=== PATIENT | male | born 1950 | race Caucasian/White ===

== ENCOUNTER 2017-07-11 13:36 | Emergency (ER) | payer MEDICARE, OTHER ==
[2017-07-11 13:53] VITALS: BP 141/90
--- NOTE | 2017-07-11 14:12 | ERNOTE ---
Psychological HPI - Date Date of Service: 07/11/17 - General Chief Complaint: Psychiatric Problem Source: Reports: patient, family - Immun/Allergies/Home Medications Allergies/Adverse Reactions: Allergies codeine [Codeine] Allergy (Unknown, Verified 10/09/15 07:30) Hives Home Medications: HOME MEDICATIONS Allopurinol 300 mg PO DAILY 11/01/12 [Last Taken Unknown] Budesonide/Formoterol Fumarate [Symbicort 160-4.5 Mcg Inhaler] 2 puff IH BID 05/08 [Last Taken Unknown] Ezetimibe [Zetia] 10 mg PO DAILY 11/01/12 [Last Taken Unknown] Glyburide/Metformin HCl [Glyburide-Metformin 5-500 mg] 1 each PO BID 11/01/12 [ Last Taken Unknown] Hydrochlorothiazide 50 mg PO DAILY 11/01/12 [Last Taken Unknown] Lisinopril 40 mg PO BID 11/01/12 [Last Taken Unknown] Metoprolol Tartrate 100 mg PO QID 11/01/12 [Last Taken Unknown] Potassium Chloride [Klor-Con 10] 10 meq PO DAILY 11/01/12 [Last Taken Unknown] Ranitidine HCl [Zantac] 150 mg PO BID 11/01/12 [Last Taken Unknown] Simvastatin 80 mg PO DAILY 11/01/12 [Last Taken Unknown] Tamsulosin HCl [Flomax] 0.4 mg PO DAILY 10/08/15 [Last Taken Unknown] buPROPion HCL [Wellbutrin SR, Zyban] 150 mg PO BID 10/08/15 [Last Taken Unknown] - History of Present Illness Time Seen by Provider: 07/11/17 14:00 Arrived by: Reports: private car Onset/duration: Reports: gone now Intent: Reports: other - states that in the middle her argument he said that he possibly wanted to kill himself Situational Problems: Reports: spouse Review of Systems - Review of Systems Constitutional: Present: See HPI EYE: Present: no symptoms reported ENT: Present: no symptoms reported Respiratory: Present: no symptoms reported Cardiology: Present: no symptoms reported Gastrointestinal/Abdominal: Present: no symptoms reported Genitourinary: Present: no symptoms reported Musculoskeletal: Present: no symptoms reported Skin: Present: no symptoms reported Neurological: Present: no symptoms reported Endocrine: Present: no symptoms reported Hematologic/Lymphatic: Present: no symptoms reported Psych: Present: no symptoms reported - Patient's Past Medical History Patient History - Medical: Alcohol Abuse, Diabetes Type 2, Depression, GERD Patient History - Cardiac/Respiratory: COPD, Hypertension, Hyperlipidemia Patient History - Cancer: Rectal Patient History - Surgical Procedures: Appendectomy, Colon Resection, Colonoscopy, Total Knee Replacement, T & A, Other Patient History - Other: None - Family History Mother Family History - Medical: No pertinent hx Father Family History - Medical: Diabetes Type 2 Family History - Cardiac/Respiratory: Myocardial Infarction - Social History Living Situations: alone Abuse History: Hx of Substance Use - ETOH Psych History: Hx of Depression, Hx of Suicide Attempt, Current tx/ever been on anti-depressants or anti-anxiety meds Smoking Status: Current every day smoker Have you smoked in the past 12 months: Yes Do you dip or chew tobacco: No Alcohol Use: heavy Drug Use: none - Immunizations Immunizations Up to Date: Yes Hx Pneumococcal Vaccination: No History of Influenza Vaccine: Yes Physical Exam - Physical Exam General Appearance: Present: wd/wn, alert, no apparent distress Eye Exam: Normal inspection: bilateral, PERRL: bilateral Ears, Nose, Throat: Present: normal ENT inspection, H, normal pharynx Neck: Present: normal inspection, nontender Respiratory: Present: no respiratory distress, no accessory muscle use, chest nontender, other - patient has scattered coarse breath sounds with trace wheezing consistent with COPD from his chronic smoking Cardiovascular/Chest: Present: regular rate, rhythm, no murmur, normal peripheral pulses Gastrointestinal/Abdominal: Present: normal bowel sounds, nontender, nondistended, soft, no organomegaly Rectal Exam: Present: deferred Back Exam: Present: normal inspection, normal range of motion Extremity Exam: Present: normal inspection, non-tender, no edema, normal range of motion Neurological Exam: Present: alert, oriented, normal mood/affect, other - patient denies any homicidal or suicidal ideations Skin Exam: Present: normal color, warm/dry Lymphatic Exam: Present: no adenopathy ED Progress - Vital Signs Patient's Vital Signs:: I have reviewed the patient's vital signs. Vital Signs: Vital Signs 07/11/17 13:41 Temperature 37.2 C Pulse Rate 76 Respiratory 18 Rate Blood Pressure 141/90 O2 Sat by Pulse 95 Oximetry - Progress/Reassessment Chief Complaint: Psychiatric Problem Plan - Plan Plan: I had a discussion with the and stated that patient told me he was not homicidal or suicidal. was just concerned because of a previous suicide attempt from several months ago. She agrees to take him home now and it was suggested that they take-up [facility] counseling. Departure Clinical Impression: Stress reaction - Departure Disposition: Home self-care Condition: Good Instructions: Chronic Obstructive Pulmonary Disease, [id number], Alcohol Use Disorder
== END 2017-07-11 14:25 | disposition home or self-care (01) ==
LOC: ER 13:36
DX: F43.0 Acute stress reaction (principal); Z85.048 Personal history of other malignant neoplasm of rectum, rectosigmoid junction, and anus; F17.200 Nicotine dependence, unspecified, uncomplicated